=== PATIENT | female | born 1995 | race African-American/Black ===

== ENCOUNTER 2017-07-14 20:27 | Emergency (ER) | payer OTHER, BC ==
[~2017-07-14] VITALS: Ht 162.6 cm; Wt 59.7 kg
[2017-07-14 20:29] VITALS: Ht 162.6 cm; Wt 59.7 kg
--- NOTE | 2017-07-14 20:50 | EMERGENCY ROOM VISIT NOTE ---
ED Visit Note First contact with patient: 20:36 CHIEF COMPLAINT: Right arm burn HISTORY OF PRESENT ILLNESS: This 21-year-old female patient presents to the emergency department after they sustained a burn injury to the right forearm, just distal to the elbow. This occurred while working at [employer]. The patient states she struck her arm against the wall [place] for approximately 1 second. The patient complains of swelling and pain over the right proximal forearm rated as 5/10. Pain is worse with movement and pressure. Sensation is still present. There is no blistering. No other injury sustained. Tetanus shot is up to date. The patient immediately ran the wound under cold water, cleaned it with an antiseptic wipe, applied burn gel and triple antibiotic ointment, followed by ice. She continues to experience significant pain so not evaluated by the emergency department. REVIEW OF SYSTEMS: A 6 system review of systems was completed with positives and pertinent negatives listed in the HPI. ALLERGIES: None MEDICATIONS: OCPs PMH: None SOCIAL HISTORY: The patient lives locally alone. She denies drug, alcohol, tobacco use. PHYSICAL EXAM: Vital Signs reviewed, see Nurse's notes, vital signs stable. GENERAL: This is a 21-year-old female, awake, alert, well appearing, no acute distress HEENT: Normocephalic, atraumatic. No carbonaceous sputum or singed nasal hair. Oropharynx without edema or erythema. MUSCULOSKELETAL: No gross deformity. SKIN: There is a partial thickness burn to the proximal, lateral right forearm and is approximately 1% BSA. The burn is not circumferential. No signs of infection or foreign body. There is no skin sloughing. NEURO: No sensory or motor deficits noted over all dermatomes and myotomes tested. EMERGENCY DEPARTMENT COURSE AND DECISION MAKING: I examined the patient. The patient presented with an isolated thermal burn as above. No signs of airway involvement or smoke inhalation. There is no critical body part involvement or burn severity to warrant burn center referral. The wound was bandaged with bacitracin, nonadhesive gauze and Nasir. The patient was given strict return precautions. She was given wound care instructions. She was encouraged to follow-up with her PCP on Sunday. Discharge instructions reviewed. The patient was discharged home in stable condition. I attest that I have personally reviewed the patient's current medication list. Blood Pressure Screening: Patient was found to have a slightly elevated blood pressure due to circumstances. I do not believe that the patient requires hypertension monitoring. Differential diagnosis includes burn, cellulitis, necrotizing fasciitis, burn, dermatitis, impetigo, erythema multiforme, bite, osteomyelitis, Llanes-Philippe Syndrome, gangrene, malignancy, and others DIAGNOSIS: Thermal burn of right forearm The chart was completed utilizing [employer] voice recognition software. Grammatical errors, random word insertions, pronoun errors, and incomplete sentences are an occasional consequence of this system due to software limitations, ambient noise, and hardware issues. Any formal questions or concerns about the content, text, or information contained within the body of this dictation should be directly addressed to the provider for clarification. Current/Historical Medications Scheduled Levonorgestrel & Eth Estradiol (Aviane), 1 TAB PO DAILY [Benadryl 24HR], 1 TAB PO DAILY Allergies Coded Allergies: No Known Allergies (Unverified , 07/14/17) Vital Signs Date Time Temp Pulse Resp B/P (MAP) Pulse Ox O2 Delivery O2 Flow Rate FiO2 07/14/17 21:19 37.3 82 16 148/82 100 07/14/17 20:29 37.3 82 16 148/82 100 Room Air Departure Information Impression Primary Impression: Thermal burn Dispostion Home / Self-Care Condition GOOD Referrals No Doctor, Assigned (PCP) Patient Instructions ED Burn Thermal D 03 06 Dressing, Formerly [facility], 1928–1983 Additional Instructions You have been treated in the Emergency Department today for a burn on your right forearm. Use bacitracin ointment on the wound to help prevent infection. This is an antibiotic ointment that will help to prevent the development of an infection at the site of your burn. After you have cleaned the burn site with soap and water and dried the area thoroughly, you should apply a layer of the ointment to the site of the burn with clean gauze or a clean tongue depressor. You should apply a dressing over the site of the burn to keep it clean from contamination. Look for signs of infection of the wound including: increased pain, swelling, foul discharge, streaking, or increased temperature. If any of these are noticed you should return to the Emergency Department for further assessment and treatment. For pain control, you can use the following [id number] medicines (if >12 yo): Ibuprofen(Motrin, Advil) may be used for fever or pain. Use 600mg every six hours as needed. Take with food. Avoid using more than 2400mg in a 24 hour period. Do not use 2400mg per day for more than three consecutive days without physician direction. Prolonged inappropriate use can lead to stomach upset or ulcers. (AND/OR) Acetaminophen(Tylenol) may be used for fever or pain. Use 1000mg every six hours as needed. Avoid using more than 3000mg in a 24 hour period. You should follow-up with your PCP in 2-3 days for a recheck of your burn. This is essential to ensure proper wound healing. Return to the emergency department if your symptoms worsen despite treatment course outlined above.
[2017-07-14] MEDS ORDERED: BENADRYL PO (21:02)
[2017-07-14] MEDS ORDERED: LEVOTAB2 PO (21:02)
[2017-07-14 21:19] VITALS: BP 148/82; PULSE 82; TEMP 37.3; O2SAT 100
== END 2017-07-14 21:19 | disposition home or self-care (01) ==
LOC: C.EDB 20:28 → C.EDD 21:19
DX: T22.011A Burn of unspecified degree of right forearm, initial encounter (principal); X19.XXXA Contact with other heat and hot substances, initial encounter; Y99.0 Civilian activity done for income or pay; Z79.3 Long term (current) use of hormonal contraceptives